=== PATIENT | male | born 1940 | race Caucasian/White ===

== ENCOUNTER 2020-08-26 06:15 | Emergency (ER) | payer MEDICARE ==
[~2020-08-26] VITALS: Ht 175.3 cm; Wt 63.6 kg
[2020-08-26 07:05] VITALS: BP 150/90
== END 2020-08-26 07:37 | disposition home or self-care (01) ==
LOC: EMS 06:17
DX: F03.90 Unspecified dementia, unspecified severity, without behavioral disturbance, psychotic disturbance, mood disturbance, and anxiety (principal); R41.82 Altered mental status, unspecified; E11.9 Type 2 diabetes mellitus without complications
CPT/HCPCS: 99283; Z7502